=== PATIENT | male | born 1975 | race Caucasian/White ===

== ENCOUNTER → 2023-02-20 | Outpatient (CLI) | payer BC ==
[2023-02-20 16:09] VITALS: BP 127/88; PULSE 91; RESP 16; TEMP 98; BMI 49.6
--- NOTE | 2023-02-20 16:30 | P.HPBAR ---
Bariatric H&P - History & Physicial H&P Date: 02/20/23 History & Physicial: Visit/CC: Band F/U Patient initial contact: Initial weight: 153.768 kg Initial weight in pounds: 339.00 Height: 5 ft 11 in Initial BMI: 47.2 Last weight: Current weight: 161.479 kg Current weight in pounds: 356.00 Current BMI: 49.6 [place] body weight (based on NIH guidelines): 78.018 kg Excess body weight loss: The patient is a 47 year-old M who presents for Bariatric Assessment. 47-year-old male known to our service. The patient underwent lap band placement 2008. At the time his weight was 339. 2011 he was able to get down to a weight of 180 and maintained that for many years. Approximately 7-8 years ago the patient had a serious relationship and his commitment to his exercise and dietary regimen declined. The patient had gradual weight gain until he reached a weight similar to he is now at 356. BMI currently 49. Patient states over the last year or 2 areas had significant intermittent chest discomfort. He has had a stents of cardiac workup which hasn't been negative. He does describe intermittent emesis and obstruction from food. He also has intermittent episodes of reflux. Patient states he is able to eat more volume of food that he used to be able to. Denies abdominal pain. No fevers. Patient thinks he has been too tight with his lap band for many years. States he did not come in sooner because [place] and was worried he would gain further weight if he was in his band. Patient now is interested in possibly converting to a different bariatric procedure. Patient does smoke one half pack cigarettes per day. Review of Systems The patient denies any acute changes in vision or hearing, no dysphagia or odynophagia, no chest pain or shortness of breath, no dysuria or hematuria, no headache, no runny nose, no rectal bleeding or melena, no unexplained weight loss Past Medical History Past Medical History: Hypertension History of Any Multi-Drug Resistant Organisms: None Reported Past Surgical History: Bariatric Surgery, Heart Catheterization Additional Past Surgical History / Comment(s): lap band 2010 Past Anesthesia/Blood Transfusion Reactions: No Reported Reaction Past Psychological History: No Psychological Hx Reported Smoking Status: Current some day smoker Past Alcohol Use History: None Reported Past Drug Use History: None Reported Surgical - Exam Vital Signs Temp Pulse Resp BP 98 F 91 16 127/88 02/20/23 14:15 02/20/23 14:15 02/20/23 14:15 02/20/23 14:15 Physical exam: General: Well-developed, well-nourished HEENT: Normocephalic, sclerae nonicteric Abdomen: Nontender, nondistended Extremities: No edema Neuro: Alert and oriented Bariatric Assessment & Plan (1) Morbid obesity Narrative/Plan: 47-year-old male with recurrent morbid obesity. Patient with history of previous lap band placement. Clearly the patient's band is too tight at this ti me. Discussed options and will proceed with emptying the band currently. Patient is interested in possibly converting to an alternate bariatric procedure. We discussed the risks, benefits, and average weight loss with sleeve gastrectomy and gastric bypass. I do believe patient would be a better candidate for Elan-en-Y gastric bypass at this time. He understands that he will require smoking cessation prior to doing so. Patient is agreeable and would like to see a bariatric team closer to home. Will refer to [facility] bariatric team for assessment regarding band removal and conversion to gastric bypass. Status: Acute Bariatric Checklist Checklist: Plan: Checklist: EGD: 1. Hiatal hernia: 2. H. Pylori: HgbA1c: Vitamin D: Smoking: Primary care physician referral: Psychiatry clearance: Cardiology clearance: Sleep study: Diet journal: VTE risk score: VTE risk level: Rehab needs at discharge:
== END ==
LOC: BARWHC3 14:02
PROVIDERS: ATTEND Surgery
DX: E66.01 Morbid (severe) obesity due to excess calories (principal); I10 Essential (primary) hypertension; F17.210 Nicotine dependence, cigarettes, uncomplicated; K21.9 Gastro-esophageal reflux disease without esophagitis; Z98.84 Bariatric surgery status; Z46.51 Encounter for fitting and adjustment of gastric lap band; Z68.42 Body mass index [BMI] 45.0-49.9, adult; Z79.899 Other long term (current) drug therapy
CPT/HCPCS: 99212